=== PATIENT | female | born 1945 | race Caucasian/White ===

== ENCOUNTER 2019-03-13 19:24 | Emergency (ER) | payer OTHER, BC ==
[2019-03-13 20:02] VITALS: BP 162/90; PULSE 94; TEMP 98.4; BMI 21.7
--- NOTE | 2019-03-13 20:40 | PDOC ---
Documentation entered by Radha Mitchell SCRIBE, acting as scribe for Mercedes Nguyễn MD. Mercedes Nguyễn MD: This documentation has been prepared by the natalyibe, Radha Mitchell SCRIBE, under my direction and personally reviewed by me in its entirety. I confirm that the documentation accurately reflects all work , treatment, procedures, and medical decision making performed by me. History of Present Illness - General Chief Complaint: Constipation Stated Complaint: "I THINK MY IS CONSTIPATED" History Source: Spouse Exam Limitations: Dementia - History of Present Illness Initial Comments: 03/13/19 20:14 The patient is a 73-year-old female who presents to the emergency department for possible constipation. History is limited because the patient reports nothing is wrong with her. History obtained through the . The reports he has noticed the patient going to the bathroom several times, wiping and seem irritable. The is unsure when the patients last bowel movement was. PAST MEDICAL HISTORY: Dementia PAST SURGICAL HISTORY: no significant history FAMILY HISTORY: no pertinent history SOCIAL HISTORY: Pt lives with . MEDICATIONS: reviewed ALLERGIES: As per nursing notes ROS: as per : General: No fevers or chills. HEENT: No sore throat,. No ear pain CardioVascular: No chest pain or shortness of breath Respiratory: No cough. Gastrointestinal: +constipation. Genitourinary: No dysuria, hematuria, or frequency Musculoskeletal: No joint or muscle pain or swelling Neurologic: No headache, vertigo, dizziness or loss of consciousness Skin: No rashes. All other systems reviewed and normal Physical Exam: Patient refused exam, states nothing is wrong with her. Pt is ambulatory and pleasantly confused. is aware that patient refused exam. Assessment and plan: This is a 73-year-old female brought in by her for evaluation of probable constipation. Patient is severely demented secondary to Alzheimer's. 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 is unsure as to the last time she actually had a bowel movement. Flat and upright x-ray obtained Patient is flat and upright show a large amount of stool all the way up the descending colon. Patient's who is a solar sales associate saw the stool and is aware of the findings. He opted to take patient home and treat her with stool softeners laxatives and disimpaction at home also enemas if needed. Patient discharged home with her . Past History - Past Medical History Allergies/Adverse Reactions: Allergies Allergy/AdvReac Type Severity Reaction Status Date / Time No Known Allergies Allergy Unverified 03/13/19 19:45 Home Medications: Ambulatory Orders NK [No Known Home Medication] 03/13/19 *Physical Exam - Vital Signs Last Vital Signs Temp Pulse Resp BP Pulse Ox 98.4 F 94 H 14 162/90 100 03/13/19 19:29 03/13/19 19:29 03/13/19 19:29 03/13/19 19:29 03/13/19 19:29 ED Treatment Course - RADIOLOGY Radiology Studies Ordered: Category Date Time Status ABDOMEN FLAT & UPRIGHT [RAD] Stat Radiology 03/13/19 19:51 Ordered Discharge - Discharge Information Problems reviewed: Yes Clinical Impression/Diagnosis: Constipation Condition: Good Disposition: HOME - Admission No - Follow up/Referral - Patient Discharge Instructions Additional Instructions: Return to the emergency department immediately with ANY new, persistent or worsening symptoms. Continue any medications as previously prescribed by your physician. You should follow up with your primary doctor as soon as possible regarding today's emergency department visit. . Please make sure your doctor reviews the results of your emergency evaluation. Thank you for coming to the Emergency Department today for your care. It was a pleasure to see you today. Please note that your evaluation is INCOMPLETE until you follow-up with your doctor. - Post Discharge Activity
== END 2019-03-13 20:37 | disposition home or self-care (01) ==
LOC: FER 19:24
DX: K59.00 Constipation, unspecified (principal); G30.9 Alzheimer's disease, unspecified; F02.80 Dementia in other diseases classified elsewhere, unspecified severity, without behavioral disturbance, psychotic disturbance, mood disturbance, and anxiety
CPT/HCPCS: 74019-TC-FY; 99282-25